=== PATIENT | female | born 1980 | race Caucasian/White ===

== ENCOUNTER 2017-01-16 09:48 | Day surgery (SDC) | payer OTHER ==
[~2017-01-16] VITALS: Ht 175.3 cm; Wt 73.5 kg
[~2017-01-16 09:48] MED LIST: ALPR0.5T PO; AMIT25TA PO; BUPIVAC MPF-EPI 0.5%-1:200000 30 ML VIAL. ONE; BUTA1CAP29 PO; CALC200T3 PO; FENTANYL PF 100 MCG/2 ML VIAL. IV PRN; FLUO20CA16 PO; HYDROMORPHONE 2 MG/ML VIAL. IV PRN; IV RINGERS,LACTATED 1000ML 1,000 ML IV SCH; LIDOCAINE 1% 1 ML SYRINGE. ID PRN; MORPHINE SULFATE 2 MG/ML DISP.SYRIN. IV PRN; PROCHLORPERAZINE 10 MG/2 ML VIAL. IV PRN; PROM25TA10 PO
[2017-01-16] MEDS ORDERED: FENTANYL PF 250 MCG/5 ML VIAL. ONE (11:19)
[2017-01-16] MEDS ORDERED: ROCURONIUM 50 MG/5 ML VIAL. ONE (11:19)
[2017-01-16] MEDS ORDERED: PROPOFOL 20 ML IV ONE ×2 (11:20)
[2017-01-16] MEDS ORDERED: ONDANSETRON PF 4 MG/2 ML VIAL. ONE (11:20)
[2017-01-16] MEDS ORDERED: LIDOCAINE 2% 100 MG/5 ML SYRINGE. ONE (11:20)
[2017-01-16] MEDS ORDERED: DEXAMETHASONE SOD PHOS 20 MG/5 ML VIAL. ONE (11:20)
[2017-01-16] MEDS ORDERED: NEOSTIGMINE METHYLSULFATE 5 MG/5 ML SYRINGE. ONE (12:07)
[2017-01-16] MEDS ORDERED: GLYCOPYRROLATE 1 MG/5 ML VIAL. ONE (12:07)
[2017-01-16] MEDS ORDERED: SEVOFLURANE 61 TO 120 MINUTES. IH ONE (12:14)
[2017-01-16] MEDS ORDERED: ACETAMINOPHEN INTRAVENOUS 100 ML IV ONE ×2 (12:34→12:45)
[2017-01-16 12:42] LABS: NEG OBC UR NEG; POS OBC UR POS
[2017-01-16] MEDS ORDERED: OXYC-323 PO (12:57)
[2017-01-16] MEDS ORDERED: OXYCODONE/APAP 5/325 TABLET. ONE (13:03)
[2017-01-16] MEDS ORDERED: OXYCODONE/APAP 5/325 TABLET. PO ONE (13:15)
[2017-01-16 13:20] VITALS: BP 110/76
--- NOTE | 2017-01-16 14:00 | PDOC ---
BRIEF OPERATIVE NOTE Pre-Op Diagnosis umb hernia primary umb hernia repair price dennison ebl 5 ivf 800 facundo well to rr stable. #[id number] REFUGIO HEMPHILL MD Jan 16, 2017 14:00
--- NOTE | 2017-01-16 23:42 | OP ---
DATE OF SURGERY: 01/16/2017 PREOPERATIVE DIAGNOSIS: Umbilical hernia. POSTOPERATIVE DIAGNOSIS: Umbilical hernia. PROCEDURE: Primary repair of umbilical hernia. SURGEON: Refugio Hemphill M.D. ANESTHESIA: General. ESTIMATED BLOOD LOSS: 5 mL. INTRAVENOUS FLUIDS: 800 mL. INDICATIONS: The patient is a 36-year-old female with a symptomatic umbilical hernia that she would like to have repaired. PROCEDURE IN DETAIL: After informed consent was obtained, the patient was taken to the operating room and placed in a supine position. With adequate induction of general anesthesia, she was prepped and draped in usual sterile fashion. An infraumbilical skin incision was made with a scalpel. Subcutaneous tissues divided with cautery. The tissue was dissected down with the fascia with a hemostat and then a hemostat was used to encircle the umbilical stalk. The dermis of the umbilicus was from the hernia sac with cautery and the hernia sac was opened. The fascial defect was very small, about 2 mm. The small size of the fascial defect gave concern that perhaps she had another adjacent hernia that was actually responsible for her symptoms but was just not immediately apparent. For this reason, the subcutaneous tissue around the umbilicus and up to the supraumbilical area was removed from the fascia with cautery. Care was taken not to injure the fascia, but there was no other specific fascial defect identifiable, no other suggestion of a hernia in the vicinity of umbilicus. Just above the umbilical fascial defect, there was one area that appeared thin, but was thought to be diastasis and not a discrete fascial defect. The fascia involved in the diastasis was closed with a [id number] 0 Prolene suture. Hernia defect itself was closed with a [id number] 0 Prolene suture. The area was inspected. It was hemostatic. The wound was injected with local anesthetic. The dermis of the umbilicus was tacked back to the fascia with a 3-0 Vicryl suture. The deep tissue at the incision was closed with interrupted 3-0 Vicryl sutures. Skin was closed with 4-0 Monocryl in subcuticular fashion. Sterile dressings were placed, which consisted of Mastisol, Steri-Strips, tonsil ball and Tegaderm. She tolerated the procedure well. There were no apparent complications. She was then transferred in stable condition to recovery room. REFUGIO HEMPHILL MD DR: RIA/usman JOB#: [id number] / [id number] MICHA Green
== END 2017-01-16 13:35 | disposition home or self-care (01) ==
LOC: SURG 09:48
PROVIDERS: ATTEND Surgery
DX: K42.9 Umbilical hernia without obstruction or gangrene (principal); M19.90 Unspecified osteoarthritis, unspecified site; Z72.89 Other problems related to lifestyle
CPT/HCPCS: 49585; 81025; A4215; J0131; J1100; J1956; J2405; J2704; J2710; J3010; J3490; J7120

== ENCOUNTER 2017-10-26 01:08 | Emergency (ER) | payer OTHER ==
[2017-10-26 01:44] LABS: URINE HCG POC HCG NEGATIVE (Negative)
[2017-10-26] MEDS: diphenhydrAMINE 50 MG/ML VIAL IVP ×2 (02:02)
[2017-10-26] MEDS: IV NORMAL SALINE 1000ML BAG 1,000 ML IV ×2 (02:03)
[2017-10-26] MEDS: KETOROLAC 30 MG/ML INJ. IV ×2 (02:03)
[2017-10-26] MEDS: METOCLOPRAMIDE HCL 10 MG/2 ML VIAL. IV ×2 (02:03)
[2017-10-26] MEDS: DEXAMETHASONE SOD PHOS 4 MG/ML VIAL IV ×2 (02:03)
[2017-10-26] MEDS: MAGNESIUM SULFATE 2GM 50 ML IV ×2 (02:04)
[2017-10-26] MEDS: SUMAtriptan. 6 MG/0.5 ML VIAL SQ ×2 (02:08)
== END 2017-10-26 04:13 | disposition home or self-care (01) ==
LOC: ER 01:08
DX: G43.909 Migraine, unspecified, not intractable, without status migrainosus (principal); Z88.0 Allergy status to penicillin
CPT/HCPCS: 81025; 96365; 96372; 96375; 99285-25; J1100; J1200; J1885; J2765; J3030; J7030; J7060

== ENCOUNTER 2018-02-15 06:52 | Emergency (ER) | payer OTHER ==
[2018-02-15] MEDS: IV NORMAL SALINE 1000ML BAG 1,000 ML IV (07:22)
[2018-02-15] MEDS: DEXAMETHASONE SOD PHOS 20 MG/5 ML VIAL. IV (07:22)
[2018-02-15] MEDS: KETOROLAC 30 MG/ML INJ. IV (07:23)
[2018-02-15] MEDS: diphenhydrAMINE 50 MG/ML VIAL IVP (07:23)
[2018-02-15] MEDS: METOCLOPRAMIDE HCL 10 MG/2 ML VIAL. IV (07:23)
[2018-02-15 07:24] LABS: ADD MAN DIFF? NO
[2018-02-15 07:28] LABS: BASO # 0.1 x10^3/uL (0.0-0.2); BASO % 1 % (0-3); EOS # 0.1 x10^3/uL (0.0-0.7); EOS % 2 % (0-3); HEMATOCRIT 38.8 % (36.0-47.0); HEMOGLOBIN 13.2 g/dL (12.0-15.5); LYMPH # 1.2 x10^3/uL (1.0-4.8); LYMPH % 27 % (24-48); MEAN CORPUSCULAR HEMOGLOBIN 31 pg (25-35); MEAN CORPUSCULAR HGB CONC 34 g/dL (31-37); MEAN CORPUSCULAR VOLUME 90 fL (79-100); MONO # 0.3 x10^3/uL (0.0-1.1); MONO % 6 % (0-9); NEUT # 2.8 x10^3uL (1.8-7.7); NEUT % 64 % (31-73); PLATELET COUNT 206 x10^3/uL (140-400); RED BLOOD COUNT 4.31 x10^6/uL (3.50-5.40); RED CELL DISTRIBUTION WIDTH 13.2 % (11.5-14.5); WHITE BLOOD COUNT 4.3 x10^3/uL (4.0-11.0)
[2018-02-15 07:39] LABS: ANION GAP 7 (6-14); BLOOD UREA NITROGEN 9 mg/dL (7-20); BUN/CREATININE RATIO 10 (6-20); CALCIUM 8.6 mg/dL (8.5-10.1); CARBON DIOXIDE 28 mmol/L (21-32); CHLORIDE 106 mmol/L (98-107); CREATININE 0.9 mg/dL (0.6-1.0); GFR 71.3; GLUCOSE 103 mg/dL (70-99); POTASSIUM 4.1 mmol/L (3.5-5.1); SODIUM 141 mmol/L (136-145)
[2018-02-15 07:44] LABS: ALBUMIN 3.9 g/dL (3.4-5.0); ALBUMIN/GLOBULIN RATIO 1.2 (1.0-1.7); ALK PHOS 63 U/L (46-116); ALT (SGPT) 18 U/L (14-59); AST (SGOT) 17 U/L (15-37); TOTAL BILIRUBIN 0.5 mg/dL (0.2-1.0); TOTAL PROTEIN 7.2 g/dL (6.4-8.2)
== END 2018-02-15 08:27 | disposition home or self-care (01) ==
LOC: ER 06:52
DX: G43.909 Migraine, unspecified, not intractable, without status migrainosus (principal); Z88.0 Allergy status to penicillin
CPT/HCPCS: 36415; 80053; 85025; 96374; 96375; 99284-25; J1100; J1200; J1885; J2765; J7030

== ENCOUNTER 2018-06-20 08:33 | Emergency (ER) | payer OTHER ==
[~2018-06-20] VITALS: Ht 175.3 cm; Wt 68.0 kg
[~2018-06-20 08:33] MED LIST changes: -BUPIVAC MPF-EPI 0.5%-1:200000 30 ML VIAL. ONE; -FENTANYL PF 100 MCG/2 ML VIAL. IV PRN; -HYDROMORPHONE 2 MG/ML VIAL. IV PRN; -IV RINGERS,LACTATED 1000ML 1,000 ML IV SCH; -LIDOCAINE 1% 1 ML SYRINGE. ID PRN; -MORPHINE SULFATE 2 MG/ML DISP.SYRIN. IV PRN; +OXYC-323 PO; -PROCHLORPERAZINE 10 MG/2 ML VIAL. IV PRN; +SUMA50TA3 PO
--- NOTE | 2018-06-20 08:55 | PHYS DOC ---
Past Medical History Past Medical History: Migraines Past Surgical History: Other Additional Past Surgical Histo: HERNIA, L.KNEE Alcohol Use: Occasionally Drug Use: None Adult General Chief Complaint Chief Complaint: HEADACHE HPI HPI 37 yo F Presenting to the emergency department today with a headache. She has a history of migraines. She reports this headache is similar to her previous migraines. The headache is a throbbing sensation that radiates to the back. She denies neck stiffness or fevers. She has mild nausea. She denies being . The pain is moderate. Review of systems is negative for fevers chest pain shortness of breath abdominal pain neck stiffness or nuchal rigidity. All other review of systems is negative unless otherwise noted in history of present illness. ED course: 37-year-old female with a headache similar to previous headaches. On arrival she is afebrile normal heart rate. She is well-appearing on examination with a normal neurologic exam. IV fluids, metoclopramide and diphenhydramine administered in the emergency department. On reexamination she is feeling much better with like to be discharged home. Urinalysis shows possible UTI. We'll start patient on Macrobid. The patient has been examined and was not found to have an emergency medical condition. The patient was then discharged home in stable condition to follow up with their primary care physician over the next 2- 3 days. They were to return if their symptoms worsened or if they were concerned for any reason. They were also instructed to return to the emergency department if they were unable to get the recommended and appropriate follow- up. [id number] discharge instructions and return precautions were given. Patient's questions were answered to their satisfaction. Patient is comfortable with plan. Review of Systems Review of Systems SEE ABOVE. Current Medications Current Medications Current Medications Medications (Trade) Dose Ordered Sig/Tayla Start Time Stop Time Status Last Admin Dose Admin Diphenhydramine HCl (Benadryl) 50 mg 1X ONCE 06/20/18 09:00 06/20/18 09:01 DC 06/20/18 09:02 50 MG Metoclopramide HCl (Reglan Vial) 20 mg 1X ONCE 06/20/18 09:00 06/20/18 09:01 DC 06/20/18 09:02 20 MG Sodium Chloride 1,000 ml @ 1,000 mls/hr 1X ONCE 06/20/18 09:00 06/20/18 09:59 DC 9/21/18 08:58 1,000 MLS/HR Allergies Allergies Allergies Coded Allergies Type Severity Reaction Last Updated Verified Penicillins Allergy Intermediate hives 01/16/17 Yes Physical Exam Physical Exam SEE ABOVE Constitutional: Well developed, well nourished, no acute distress, non-toxic appearance. HENT: Normocephalic, atraumatic, bilateral external ears normal, oropharynx moist, no oral exudates, nose normal. Eyes: PERRLA, EOMI, conjunctiva normal, no discharge. [] Neck: Normal range of motion, no tenderness, supple, no stridor. Cardiovascular:Heart rate regular rhythm, no murmur [] Lungs & Thorax: Bilateral breath sounds clear to auscultation [] Abdomen: Bowel sounds normal, soft, no tenderness, no masses, no pulsatile masses. Skin: Warm, dry, no erythema, no rash. Back: No tenderness, no CVA tenderness. [] Extremities: No tenderness, no cyanosis, no clubbing, ROM intact, no edema. Neurologic: Mental status: Awake oriented and alert x3 Cranial nerves: Extraocular movements intact, eyebrows roby bilaterally, smile symmetric, uvula elevation nl, shoulder shrug intact bilaterally, tongue protrusion normal DTRs: 2+ Sensation: equal and normal in all extremities Strength: 5/5 in upper and lower extremities bilaterally Psychologic: Affect normal, judgement normal, mood normal. [] Current Patient Data Vital Signs Vital Signs Date Time Temp Pulse Resp B/P (MAP) Pulse Ox O2 Delivery O2 Flow Rate FiO2 06/20/18 09:15 80 100 06/20/18 09:09 98.6 16 117/83 (94) Room Air 98.6 Lab Values Laboratory Tests Test 06/20/18 09:40 06/20/18 09:44 Urine Collection Type Void Urine Color Yellow Urine Clarity Clear Urine pH 6.5 Urine Specific [place] 1.010 Urine Protein Negative mg/dL (NEG-TRACE) Urine Glucose (UA) Negative mg/dL (NEG) Urine Ketones (Stick) Negative mg/dL (NEG) Urine Blood Negative (NEG) Urine Nitrite Negative (NEG) Urine Bilirubin Negative (NEG) Urine Urobilinogen Dipstick 0.2 mg/dL (0.2 mg/dL) Urine Leukocyte Esterase Moderate (NEG) Urine RBC 0 /HPF (0-2) Urine WBC 11-20 /HPF (0-4) Urine Squamous Epithelial Cells Mod /LPF Urine Bacteria Moderate /HPF (0-FEW) POC Urine HCG, Qualitative Hcg negative (Negative) EKG EKG [] Radiology/Procedures Radiology/Procedures [] Course & Med Decision Making Course & Med Decision Making Pertinent Labs and Imaging studies reviewed. (See chart for details) [] Dragon Disclaimer Dragon Disclaimer This electronic medical record was generated, in whole or in part, using a voice recognition dictation system. Departure Departure Impression: Primary Impression: Migraine Disposition: 01 HOME, SELF-CARE Condition: STABLE Referrals: NO PCP (PCP) Patient Instructions: Migraine Headache Additional Instructions: Thank you for allowing us to participate in your care today. Return to the emergency department you have any new or worsening symptoms, or if you are concerned for any reason. Return to emergency department if you have any new or concerning symptoms including but not limited to fever, chills, nausea, vomiting, intractable pain, any new rashes, chest pain, shortness of air , uncontrolled bleeding, difficulty breathing, and/or vision loss. Follow up with your primary care physician within 3 days. Call your Primary Doctor tomorrow and inform them of your visit today. If you do not have a primary care provider we are happy to provide you with a list of our primary care providers contact information. This condition should be evaluated by your primary care physician and any recommended consulting services for continued management within 2-3 days after discharge. If at any time, you are having difficulty getting into your primary care doctor or a specialist, return to the emergency department. Scripts Nitrofurantoin Monohyd/M-Cryst (MACROBID 100 MG CAPSULE) 100 Mg Capsule 1 CAP PO BID, #10 CAP Prov: JOSH CARTER MD 06/20/18 JOSH CARTER MD Jun 20, 2018 08:55
[2018-06-20] MEDS ORDERED: IV NORMAL SALINE 1000ML BAG 1,000 ML IV ONE (09:00)
[2018-06-20] MEDS ORDERED: diphenhydrAMINE 50 MG/ML VIAL IVP ONE (09:00)
[2018-06-20] MEDS ORDERED: METOCLOPRAMIDE HCL 10 MG/2 ML VIAL. IV ONE (09:00)
[2018-06-20 09:55] LABS: BILIRUBIN,URINE NEGATIVE (NEG); CLARITY,URINE CLEAR; COLOR,URINE YELLOW; NITRITE,URINE NEGATIVE (NEG); PH,URINE 6.5; PROTEIN,URINE NEGATIVE (NEG-TRACE); UROBILINOGEN,URINE 0.2 mg/dL (0.2 mg/dL)
[2018-06-20 10:14] LABS: SQUAMOUS EPITHELIAL CELL,UR MOD /LPF
[2018-06-20 10:15] LABS: BACTERIA,URINE MODERATE /HPF (0-FEW); RBC,URINE 0 /HPF (0-2)
[2018-06-20] MEDS ORDERED: NITR100C62 PO (10:20)
[2018-06-20 10:29] VITALS: BP 107/67
== END 2018-06-20 10:30 | disposition home or self-care (01) ==
LOC: ER 08:33
DX: G43.909 Migraine, unspecified, not intractable, without status migrainosus (principal); Z88.0 Allergy status to penicillin
CPT/HCPCS: 81001; 81025; 87086; 96374; 96375; 99284; J1200; J2765; J7030; 99285-25

== ENCOUNTER 2019-05-04 07:29 | Emergency (ER) | payer MEDICAID, OTHER ==
[~2019-05-04] VITALS: Ht 172.7 cm; Wt 68.0 kg
[~2019-05-04 07:29] MED LIST changes: +NITR100C62 PO; -OXYC-323 PO; +OXYC1TAB15 PO
[2019-05-04] MEDS ORDERED: METO10TA81 PO (07:51)
--- NOTE | 2019-05-04 07:51 | PHYS DOC ---
Past Medical History Past Medical History: Anxiety, Migraines Past Surgical History: Other Additional Past Surgical Histo: HERNIA, L.KNEE Alcohol Use: Occasionally Drug Use: None Adult General Chief Complaint Chief Complaint: HEADACHE HPI HPI Patient is a 38-year-old female with a history of migraine headaches who presents with a typical migraine for her today. She tried to take sumatriptan this morning without relief. She states the pain started throughout the night. She states it's behind her eyes bilaterally. She states it's throbbing in nature. She describes both photophobia and phonophobia. She does have associated nausea. She denies any lateralizing neurologic weakness. She denies any fever or neck pain.[] Review of Systems Review of Systems Constitutional: Denies fever or chills [] Eyes: Denies change in visual acuity, redness, or eye pain [] HENT: Denies nasal congestion or sore throat [] Respiratory: Denies cough or shortness of breath [] Cardiovascular: No additional information not addressed in HPI [] GI: Denies abdominal pain, nausea, vomiting, bloody stools or diarrhea [] : Denies dysuria or hematuria [] Musculoskeletal: Denies back pain or joint pain [] Integument: Denies rash or skin lesions [] Neurologic: Per history of present illness[] Endocrine: Denies polyuria or polydipsia [] All other systems were reviewed and found to be within normal limits, except as documented in this note. Current Medications Current Medications Current Medications Medications (Trade) Dose Ordered Sig/Tayla Start Time Stop Time Status Last Admin Dose Admin Diphenhydramine HCl (Benadryl) 25 mg 1X ONCE 05/04/19 08:00 05/04/19 08:01 DC 05/04/19 08:06 25 MG Ketorolac Tromethamine (Toradol 30mg Vial) 30 mg 1X ONCE 05/04/19 08:00 05/04/19 08:01 DC 05/04/19 08:00 30 MG Metoclopramide HCl (Reglan Vial) 10 mg 1X ONCE 05/04/19 08:00 05/04/19 08:01 DC 05/04/19 08:05 10 MG Sodium Chloride 1,000 ml @ 1,000 mls/hr 1X ONCE 05/04/19 08:00 05/04/19 08:59 05/04/19 08:06 1,000 MLS/HR Allergies Allergies Allergies Coded Allergies Type Severity Reaction Last Updated Verified Penicillins Allergy Intermediate hives 01/16/17 Yes Physical Exam Physical Exam Constitutional: Well developed, well nourished, moderate distress, non-toxic appearance. [] HENT: Normocephalic, atraumatic, bilateral external ears normal, oropharynx moist, no oral exudates, nose normal. [] Eyes: PERRLA, EOMI, conjunctiva normal, no discharge. [] Neck: Normal range of motion, no tenderness, supple, no stridor. [] Cardiovascular:Heart rate regular rhythm, no murmur [] Lungs & Thorax: Bilateral breath sounds clear to auscultation [] Abdomen: Bowel sounds normal, soft, no tenderness, no masses, no pulsatile masses. [] Skin: Warm, dry, no erythema, no rash. [] Back: No tenderness, no CVA tenderness. [] Extremities: No tenderness, no cyanosis, no clubbing, ROM intact, no edema. [] Neurologic: Alert and oriented X 3, normal motor function, normal sensory funct ion, no focal deficits noted. [] Psychologic: Depressed affect. [] Current Patient Data Vital Signs Vital Signs Date Time Temp Pulse Resp B/P (MAP) Pulse Ox O2 Delivery O2 Flow Rate FiO2 05/04/19 07:48 97.8 99 18 116/73 (87) 99 Room Air 97.8 Lab Values Laboratory Tests Test 05/04/19 07:42 POC Urine HCG, Qualitative Hcg negative (Negative) EKG EKG [] Radiology/Procedures Radiology/Procedures [] Course & Med Decision Making Course & Med Decision Making Pertinent Labs and Imaging studies reviewed. (See chart for details) [ED course: Evaluation reveals a 38-year-old female with migraine type symptoms. She was given IV fluids, Reglan, Toradol and Benadryl with complete resolution of her symptoms. I will give the patient Reglan to take as an outpatient. He is safe for discharge home at this time.] Dragon Disclaimer Dragon Disclaimer This electronic medical record was generated, in whole or in part, using a voice recognition dictation system. Departure Departure Impression: Primary Impression: Migraine Disposition: 01 HOME, SELF-CARE Condition: IMPROVED Referrals: ARMAAN RAYMUNDO MD (PCP) Patient Instructions: Migraine Headache Additional Instructions: Take medication as directed. Return to the emergency department with any new or concerning symptoms Scripts Metoclopramide Hcl (REGLAN) 10 Mg Tablet 1 TAB PO Q8HRS PRN for migraine, #30 TAB Take Benadryl 25 mg with each dose. Prov: JHON GUILLEN DO 05/04/19 Problem Qualifiers Primary Impression: Migraine Migraine type: unspecified Status migrainosus presence: without status migrainosus Intractability: not intractable Qualified Codes: G43.909 - Migraine, unspecified, not intractable, without status migrainosus JHON GUILLEN DO May 04, 2019 07:51
[2019-05-04] MEDS ORDERED: KETOROLAC 30 MG/ML VIAL. IV ONE (08:00)
[2019-05-04] MEDS ORDERED: METOCLOPRAMIDE HCL 10 MG/2 ML VIAL. IV ONE (08:00)
[2019-05-04] MEDS ORDERED: IV NORMAL SALINE 1000ML BAG 1,000 ML IV ONE (08:00)
[2019-05-04] MEDS ORDERED: diphenhydrAMINE 50 MG/ML VIAL IVP ONE (08:00)
[2019-05-04 09:00] VITALS: BP 123/77
== END 2019-05-04 09:00 | disposition home or self-care (01) ==
LOC: ER 07:29
DX: G43.909 Migraine, unspecified, not intractable, without status migrainosus (principal); R11.2 Nausea with vomiting, unspecified; F32.9 Major depressive disorder, single episode, unspecified; F41.9 Anxiety disorder, unspecified; Z88.0 Allergy status to penicillin
CPT/HCPCS: 81025; 96361; 96374; 96375; 99284; J1200; J1885; J2765; J7030

== ENCOUNTER 2019-05-10 11:19 | Emergency (ER) | payer MEDICAID ==
[~2019-05-10] VITALS: Ht 172.7 cm; Wt 68.0 kg
[~2019-05-10 11:19] MED LIST changes: +METO10TA81 PO
[2019-05-10 11:43] VITALS: BP 112/77
[2019-05-10 12:19] LABS: BASO % 1 % (0-3); EOS # 0.1 x10^3/uL (0.0-0.7); EOS % 1 % (0-3); HEMATOCRIT 38.8 % (36.0-47.0); HEMOGLOBIN 13.2 g/dL (12.0-15.5); LYMPH # 1.5 x10^3/uL (1.0-4.8); LYMPH % 32 % (24-48); MEAN CORPUSCULAR HEMOGLOBIN 31 pg (25-35); MEAN CORPUSCULAR HGB CONC 34 g/dL (31-37); MEAN CORPUSCULAR VOLUME 90 fL (79-100); MONO # 0.4 x10^3/uL (0.0-1.1); MONO % 8 % (0-9); NEUT # 2.7 x10^3/uL (1.8-7.7); NEUT % 58 % (31-73); PLATELET COUNT 247 x10^3/uL (140-400); RED BLOOD COUNT 4.32 x10^6/uL (3.50-5.40); RED CELL DISTRIBUTION WIDTH 13.2 % (11.5-14.5); WHITE BLOOD COUNT 4.7 x10^3/uL (4.0-11.0)
[2019-05-10 12:22] LABS: BILIRUBIN,URINE NEGATIVE (NEG); CLARITY,URINE CLEAR; COLOR,URINE YELLOW; NITRITE,URINE NEGATIVE (NEG); PROTEIN,URINE NEGATIVE (NEG-TRACE); UROBILINOGEN,URINE 0.2 mg/dL (0.2 mg/dL)
--- NOTE | 2019-05-10 12:27 | RAD ---
CHEST AP ONLY Clinical Indication: Left arm numbness starting this morning. Comparison: None. Findings: The cardiomediastinal silhouette is normal. Lungs are clear. There is no pneumothorax. No pleural effusion is appreciated. No acute bone abnormality. IMPRESSION: No acute cardiopulmonary process. Electronically signed by: Oumar Andersen MD (05/10/2019 12:24 PM) [facility]
[2019-05-10 12:29] LABS: BARBITURATES NEG (NEG); BENZODIAZEPINES NEG (NEG); CANNABINOIDS POS (NEG); COCAINE NEG (NEG); METHADONE NEG (NEG); OPIATES NEG (NEG); PHENCYCLIDINE NEG (NEG)
--- NOTE | 2019-05-10 12:30 | RAD ---
CERVICAL SPINE 2-3V, SHOULDER 2+V LEFT Clinical Indication: Left arm numbness started this morning. Comparison: None. Findings: Cervical spine: Lateral masses are symmetric. The odontoid is intact. The lung apices are clear. Straightening of normal cervical lordosis may be positional or due to muscle spasm. The alignment is maintained. No loss of vertebral body height. No acute fracture. No significant disc space narrowing. The prevertebral soft tissues are normal. The facet joints are intact. Left shoulder: The acromioclavicular and glenohumeral joints are intact. No acute fracture or dislocation. Visualized upper lungs are clear. Soft tissues unremarkable. IMPRESSION: 1. Left shoulder radiographs are negative. 2. No significant degenerative changes of the cervical spine. Electronically signed by: Oumar Andersen MD (05/10/2019 12:27 PM) [facility]
[2019-05-10 12:33] LABS: AMPHETAMINE/METHAMPHETAMINE NEG (NEG)
[2019-05-10 12:34] LABS: SQUAMOUS EPITHELIAL CELL,UR MANY /LPF
[2019-05-10 12:35] LABS: CALCIUM 8.9 mg/dL (8.5-10.1); CREATININE 0.9 mg/dL (0.6-1.0); GFR 70.8; POTASSIUM 3.7 mmol/L (3.5-5.1)
[2019-05-10 12:36] LABS: BACTERIA,URINE MOD /HPF (0-FEW); RBC,URINE 0 /HPF (0-2)
[2019-05-10 12:39] LABS: ALBUMIN/GLOBULIN RATIO 1.3 (1.0-1.7); MAGNESIUM 1.8 mg/dL (1.8-2.4); TOTAL BILIRUBIN 0.7 mg/dL (0.2-1.0); TOTAL PROTEIN 7.2 g/dL (6.4-8.2)
--- NOTE | 2019-05-10 13:00 | PHYS DOC ---
Past Medical History Past Medical History: Anxiety, Migraines Additional Past Medical Histor: BICUSPID VALVE DISEASE Past Surgical History: Other Additional Past Surgical Histo: HERNIA, L.KNEE Alcohol Use: Occasionally Drug Use: Marijuana Adult General Chief Complaint Chief Complaint: CHEST PAIN HPI HPI Patient is a 38 year old female with history of anxiety, migraine headaches, who presents to the ED today complaining of 6 out of 10 left upper extremity pain with numbness and continue that began this morning. Patient denies any injury. Patient states the pain is worse on range of motion. She states immobilization relieves the pain. She states she's had this pain multiple times before but no one has ever figured out the cause of the pain. She is also complaining of 4 out of 10 chest tightness that began this morning. Denies any chest pain radiating to the left arm. Denies any shortness of breath. Denies anything relieving or exacerbating her chest tightness. Review of Systems Review of Systems Constitutional: Denies fever or chills [] Eyes: Denies change in visual acuity, redness, or eye pain [] HENT: Denies nasal congestion or sore throat [] Respiratory: Denies cough or shortness of breath [] Cardiovascular: Reports chest tightness GI: Denies abdominal pain, nausea, vomiting, bloody stools or diarrhea [] : Denies dysuria or hematuria [] Musculoskeletal: Reports left upper extremity pain with numbness and tingling Integument: Denies rash or skin lesions [] Neurologic: Denies headache, focal weakness or sensory changes [] All other systems were reviewed and found to be within normal limits, except as documented in this note. Allergies Allergies Allergies Coded Allergies Type Severity Reaction Last Updated Verified Penicillins Allergy Intermediate hives 01/16/17 Yes Physical Exam Physical Exam Constitutional: Well developed, well nourished, no acute distress, non-toxic appearance. [] HENT: Normocephalic, atraumatic, bilateral external ears normal, oropharynx moist, no oral exudates, nose normal. [] Eyes: PERRLA, EOMI, conjunctiva normal, no discharge. [] Neck: Normal range of motion, no tenderness, supple, no stridor. [] Cardiovascular:Heart rate regular rhythm, no murmur [] Lungs & Thorax: Bilateral breath sounds clear to auscultation [] Abdomen: Bowel sounds normal, soft, no tenderness, no masses, no pulsatile masses. [] Skin: Warm, dry, no erythema, no rash. [] Back: No tenderness, no CVA tenderness. [] Extremities: No tenderness, no cyanosis, no clubbing, ROM intact, no edema. [] Neurologic: Alert and oriented X 3, normal motor function, normal sensory function, no focal deficits noted. [] Psychologic: Depressed mood Current Patient Data Vital Signs Vital Signs Date Time Temp Pulse Resp B/P (MAP) Pulse Ox O2 Delivery O2 Flow Rate FiO2 05/10/19 11:43 98.7 63 18 112/77 (89) 98 Room Air 98.7 Lab Values Laboratory Tests Test 05/10/19 12:00 05/10/19 12:05 White Blood Count 4.7 x10^3/uL (4.0-11.0) Red Blood Count 4.32 x10^6/uL (3.50-5.40) Hemoglobin 13.2 g/dL (12.0-15.5) Hematocrit 38.8 % (36.0-47.0) Mean Corpuscular Volume 90 fL (79-100) Mean Corpuscular Hemoglobin 31 pg (25-35) Mean Corpuscular Hemoglobin Concent 34 g/dL (31-37) Red Cell Distribution Width 13.2 % (11.5-14.5) Platelet Count 247 x10^3/uL (140-400) Neutrophils (%) (Auto) 58 % (31-73) Lymphocytes (%) (Auto) 32 % (24-48) Monocytes (%) (Auto) 8 % (0-9) Eosinophils (%) (Auto) 1 % (0-3) Basophils (%) (Auto) 1 % (0-3) Neutrophils # (Auto) 2.7 x10^3/uL (1.8-7.7) Lymphocytes # (Auto) 1.5 x10^3/uL (1.0-4.8) Monocytes # (Auto) 0.4 x10^3/uL (0.0-1.1) Eosinophils # (Auto) 0.1 x10^3/uL (0.0-0.7) Basophils # (Auto) 0.0 x10^3/uL (0.0-0.2) Urine Collection Type Unknown Urine Color Yellow Urine Clarity Clear Urine pH 8.0 Urine Specific Sun 1.015 Urine Protein Negative mg/dL (NEG-TRACE) Urine Glucose (UA) Negative mg/dL (NEG) Urine Ketones (Stick) Negative mg/dL (NEG) Urine Blood Negative (NEG) Urine Nitrite Negative (NEG) Urine Bilirubin Negative (NEG) Urine Urobilinogen Dipstick 0.2 mg/dL (0.2 mg/dL) Urine Leukocyte Esterase Moderate (NEG) Urine RBC 0 /HPF (0-2) Urine WBC 11-20 /HPF (0-4) Urine Squamous Epithelial Cells Many /LPF Urine Bacteria Mod /HPF (0-FEW) Urine Mucus Slight /LPF Sodium Level 141 mmol/L (136-145) Potassium Level 3.7 mmol/L (3.5-5.1) Chloride Level 105 mmol/L (98-107) Carbon Dioxide Level 29 mmol/L (21-32) Anion Gap 7 (6-14) Blood Urea Nitrogen 8 mg/dL (7-20) Creatinine 0.9 mg/dL (0.6-1.0) Estimated GFR (Cockcroft-Gault) 70.8 BUN/Creatinine Ratio 9 (6-20) Glucose Level 106 mg/dL (70-99) H Calcium Level 8.9 mg/dL (8.5-10.1) Magnesium Level 1.8 mg/dL (1.8-2.4) Total Bilirubin 0.7 mg/dL (0.2-1.0) Aspartate Amino Transferase (AST) 15 U/L (15-37) Alanine Aminotransferase (ALT) 13 U/L (14-59) L Alkaline Phosphatase 63 U/L (46-116) Creatine Kinase 87 U/L (26-192) Creatine Kinase MB (Mass) 0.8 ng/mL (0.0-3.6) Creatine Kinase MB Relative Index 0.9 % (0-4) Troponin I Quantitative < 0.017 ng/mL (0.000-0.055) KB-Vgr-R-Type Natriuretic Peptide 33 pg/mL (0-124) Total Protein 7.2 g/dL (6.4-8.2) Albumin 4.0 g/dL (3.4-5.0) Albumin/Globulin Ratio 1.3 (1.0-1.7) Thyroid Stimulating Hormone (TSH) 2.636 uIU/mL (0.358-3.74) Urine Opiates Screen Neg (NEG) Urine Methadone Screen Neg (NEG) Urine Barbiturates Neg (NEG) Urine Phencyclidine Screen Neg (NEG) Urine Amphetamine/Methamphetamine Neg (NEG) Urine Benzodiazepines Screen Neg (NEG) Urine Cocaine Screen Neg (NEG) Urine Cannabinoids Screen Pos (NEG) Urine Ethyl Alcohol Neg (NEG) POC Urine HCG, Qualitative Hcg negative (Negative) Laboratory Tests 05/10/19 12:00 Laboratory Tests 05/10/19 12:00 EKG EKG [address] Vega sinus rhythm HR 63 no STEMI [] Radiology/Procedures Radiology/Procedures []PROCEDURE: CERVICAL SPINE 2-3V CERVICAL SPINE 2-3V, SHOULDER 2+V LEFT Clinical Indication: Left arm numbness started this morning. Comparison: None. Findings: Cervical spine: Lateral masses are symmetric. The odontoid is intact. The lung apices are clear. Straightening of normal cervical lordosis may be positional or due to muscle spasm. The alignment is maintained. No loss of vertebral body height. No acute fracture. No significant disc space narrowing. The prevertebral soft tissues are normal. The facet joints are intact. Left shoulder: The acromioclavicular and glenohumeral joints are intact. No acute fracture or dislocation. Visualized upper lungs are clear. Soft tissues unremarkable. IMPRESSION: 1. Left shoulder radiographs are negative. 2. No significant degenerative changes of the cervical spine. Electronically signed by: Oumar Andersen MD (05/10/2019 12:27 PM) [facility] DICTATED and SIGNED BY: OUMAR ANDERSEN MD DATE: 05/10/19 1227 PROCEDURE: CHEST AP ONLY CHEST AP ONLY Clinical Indication: Left arm numbness starting this morning. Comparison: None. Findings: The cardiomediastinal silhouette is normal. Lungs are clear. There is no pneumothorax. No pleural effusion is appreciated. No acute bone abnormality. IMPRESSION: No acute cardiopulmonary process. Electronically signed by: Oumar Andersen MD (05/10/2019 12:24 PM) [facility] DICTATED and SIGNED BY: OUMAR ANDERSEN MD DATE: 05/10/19 1224 Course & Med Decision Making Course & Med Decision Making Pertinent Labs and Imaging studies reviewed. (See chart for details) This is a 38-year-old female patient presented to the ED today complaining of left thumb pain with numbness and tingling that began this morning. She states this pain before. She is also complaining of chest tightness. EKG is negative, troponin is normal. CBC CMP-negative for any acute findings. Chest x-rays negative for any acute findings, left shoulder and cervical spine x-rays are negative. Patient's left upper extremity symptoms are more in line with radiculopathy. Will be discharged to home, follow up with her own PCP. Given prescription for cyclobenzaprine, and naproxen. Dragon Disclaimer Dragon Disclaimer This electronic medical record was generated, in whole or in part, using a voice recognition dictation system. Departure Departure Impression: Primary Impression: Radicular pain in left arm Additional Impression: Chest tightness Disposition: HOME, SELF-CARE Condition: STABLE Referrals: ARMAAN RAYMUNDO MD (PCP) Follow-up with your own doctor in the course of this week Patient Instructions: Radicular Pain Additional Instructions: You were evaluated in the ER your cardiac workup is negative for any acute findings. Please follow-up with your own doctor in the course of this week. Scripts Naproxen (NAPROXEN) 375 Mg Tablet 1 TAB PO BID, #20 TAB 0 Refills Prov: KAMALA GARCIA APRN 05/10/19 Gabapentin (GABAPENTIN ) 300 Mg Capsule 300 MG PO TID for NEUROGENIC PAIN, #14 CAP Prov: KAMALA GARCIA APRN 05/10/19 Cyclobenzaprine Hcl (CYCLOBENZAPRINE HCL) 10 Mg Tablet 1 TAB PO TID, #30 TAB Prov: KAMALA GARCIA APRN 05/10/19 Problem Qualifiers KAMALA GARCIA APRN May 10, 2019 13:00
[2019-05-10] MEDS ORDERED: NAPR-695 PO (13:08)
[2019-05-10] MEDS ORDERED: CYCL10TA2 PO (13:08)
[2019-05-10] MEDS ORDERED: GABA300C18 PO (13:08)
--- NOTE | 2019-05-11 06:23 | EKG ---
[facility] [address] [place] [id number] Test Date: 2019-05-10 Test Time: 11:26:26 Pat Name: PADMINI KING Department: Room: Gender: F [employer]: : 1980 Requested By: KAMALA GARCIA Order Number: [id number] Reading MD: Measurements Intervals Emerson Rate: 63 P: 56 AR: 140 QRS: 11 QRSD: 84 T: 5 QT: 390 QTc: 402 Interpretive Statements SINUS RHYTHM INCOMPLETE RIGHT BUNDLE BRANCH BLOCK T ABNORMALITY IN ANTERIOR LEADS ABNORMAL ECG RI6.01 Unconfirmed report No previous ECG available for comparison
== END 2019-05-10 13:25 | disposition home or self-care (01) ==
LOC: ER 11:19
DX: M54.10 Radiculopathy, site unspecified (principal); M79.602 Pain in left arm; R07.89 Other chest pain; G43.909 Migraine, unspecified, not intractable, without status migrainosus; F32.9 Major depressive disorder, single episode, unspecified; F41.9 Anxiety disorder, unspecified; Z88.0 Allergy status to penicillin
CPT/HCPCS: 36415; 71045; 72040; 73030; 80053; 80307; 81001; 81025; 82553; 83735; 83880; 84443; 84484; 85025; 93005; 99285-25